=== PATIENT | male | born 1995 ===

== ENCOUNTER 2022-12-04 23:48 | Emergency (ER) | payer SELFPAY ==
[2022-12-05 00:31] LABS: Absolute Lymphocytes (CBC) 2.7 K/uL (0.7-4.9); Hematocrit 42.6 % (39.6-49.0); Lymphocytes % 30.3 % (15.3-44.8); MCV 82.3 fL (80-100); MPV 8.6 fL (7.6-11.3); Platelets 199 thou/uL (152-406); RBC Red Blood Cell Count 5.17 M/uL (4.33-5.43)
[2022-12-05 00:50] LABS: Bilirubin Total 0.3 mg/dL (0.2-1.0); Potassium 3.3 mEq/L (3.5-5.1); Protein, Total 7.8 g/dL (6.4-8.2)
[2022-12-05] MEDS ORDERED: MAGNES/ALUMIN/SIMET 30ML UCUP ONE (00:55)
[2022-12-05] MEDS ORDERED: FAMOTIDINE 20 MG/2 ML VIAL IV ONE (00:55)
--- NOTE | 2022-12-05 01:10 | EDPHYS ---
Physician Documentation [facility] Name: Romeo Bender Age: 27 yrs Sex: Male : 1995 Arrival Date: 12/04/2022 Time: 23:48 Bed 8 Private MD: ED Physician Aki Chapa HPI: 12/05 00:21 This 27 yrs old Male presents to ER via Unassigned with complaints of DRY MOUTH, abd rn pain. 00:21 The patient presents with abdominal pain in the left upper quadrant. Onset: The rn symptoms/episode began/occurred. 00:21 Onset: The symptoms/episode began/occurred 1.5 month(s) ago. The symptoms do not rn radiate. Associated signs and symptoms: Pertinent negatives: nausea and vomiting, anorexia, blood in stools, chest pain, fever, shortness of breath, vomiting, vomiting blood. The symptoms are described as burning. Modifying factors: The symptoms are alleviated by antacids, the symptoms are aggravated by nothing. Severity of pain: At its worst the pain was mild in the emergency department the pain is unchanged. The patient has not experienced similar symptoms in the past. Patient reports 1 to 1-1/2 months of dry mouth/bad taste in mouth/salty taste. Denies any medical problems. Reports tried Tums 1 time during the episode that alleviated the symptoms. Now having left upper quadrant pain for the last week. The combination made him come in for further evaluation.. Historical: - Allergies: 00:21 No Known Allergies; bp - Home Meds: 00:21 None [Active]; bp - PMHx: 00:21 None; bp - Immunization history:: Adult Immunizations up to date. - Social history:: Smoking status: Patient denies any tobacco usage or history of. - Family history:: not pertinent. - Hospitalizations: : No recent hospitalization is reported. ROS: 00:21 Constitutional: Negative for fever, chills, and weight loss, Neck: Negative for injury, rn pain, and swelling, Cardiovascular: Negative for chest pain, palpitations, and edema, Respiratory: Negative for shortness of breath, cough, wheezing, and pleuritic chest pain, Abdomen/GI: Positive for left upper quadrant abdominal pain MS/Extremity: Negative for injury and deformity, Neuro: Negative for headache, weakness, numbness, tingling, and seizure, Exam: 00:21 Constitutional: This is a well developed, well nourished patient who is awake, alert, rn and in no acute distress. Head/Face: Normocephalic, atraumatic. ENT: Oropharynx with no redness, swelling, or masses, exudates, or evidence of obstruction, uvula midline. Mucous membranes moist. Cardiovascular: Regular rate and rhythm. No pulse deficits. Respiratory: No increased work of breathing, no retractions or nasal flaring. Abdomen/GI: Soft, mild left upper quadrant tenderness. No epigastric tenderness. No peritoneal signs. No distention. Vital Signs: 00:20 BP 117 / 84; Pulse 70; Resp 16; Temp 97.7; Pulse Ox 99% ; bp 00:40 BP 129 / 84; Pulse 77; Resp 16 S; Pulse Ox 98% on R/A; Pain 4/10; km8 01:00 BP 126 / 90; Pulse 68; Resp 16; Pulse Ox 98% on R/A; km8 01:30 BP 124 / 88; Pulse 66; Resp 16; Pulse Ox 100% on R/A; km8 00:40 Pain Scale: Adult km8 MDM: 12/04 23:56 Patient medically screened. rn 12/05 01:09 Differential diagnosis: cholecystitis, Cholelithiasis, diverticulitis, gastritis, rn gastroesophageal reflux disease, non-specific abd pain. Differential diagnosis: pancreatitis, Peptic Ulcer Disease, Perf. Duodenal Ulcer, Perf. Gastric Ulcer. Data reviewed: vital signs, nurses notes. Data reviewed: lab test result(s), radiologic studies, CT scan, and as a result, I will discharge patient. Counseling: I had a detailed discussion with the patient and/or guardian regarding the historical points, exam findings, and any diagnostic results supporting the discharge/admit diagnosis, lab results, radiology results, the need for outpatient follow up, to return to the emergency department if symptoms worsen or persist or if there are any questions or concerns that arise at home. Response to treatment: the patient's symptoms have mildly improved after treatment, and as a result, I will discharge patient. Special discussion: I discussed with the patient/guardian in detail that at this point there is no indication for admission to the hospital. It is understood, however, that if the symptoms persist or worsen the patient needs to return immediately for re-evaluation. Based on the history and exam findings, there is no indication for further emergent testing or inpatient evaluation. I discussed with the patient/guardian the need to see the senior product development scientist for further evaluation of the symptoms. 02:02 ED course: Patient with marked improvement of symptoms after GI cocktail and Pepcid. rn 12/05 00:01 Order name: CBC with Diff; Complete Time: 00:54 rn 12/05 00:01 Order name: CMP; Complete Time: 00:54 rn 12/05 00:01 Order name: Lipase; Complete Time: 00:54 rn 12/05 00:01 Order name: CT Abd/Pelvis - IV Contrast Only rn 12/05 00:01 Order name: IV Saline Lock; Complete Time: 00:20 rn 12/05 00:01 Order name: Labs collected and sent; Complete Time: 00:20 rn Administered Medications: 00:50 Drug: Famotidine IVP 20 mg IVP once; dilute with 10 mL 0.9% NaCl; give over 2 minutes km8 Route: IVP; Site: right antecubital; 01:55 Follow up: Response: No adverse reaction; No change in condition km8 00:50 Drug: GI Cocktail without - (Maalox PO 30 ml, Lidocaine Mucous Membrane 2 % 15 km8 ml) PO once Route: PO; 01:55 Follow up: Response: No adverse reaction; No change in condition km8 Disposition Summary: 12/05/22 01:10 Discharge Ordered Notes: Location: Home rn Problem: an ongoing problem rn Symptoms: have improved rn Condition: Stable rn Diagnosis - Gastro-esophageal reflux disease without esophagitis rn - Abdominal pain, unspecified rn Followup: rn - With: Rafat Ahn MD - When: As needed - Reason: Recheck today's complaints, Re-evaluation by your physician Discharge Instructions: - Discharge Summary Sheet rn - Abdominal Pain, Adult rn - Gastroesophageal Reflux Disease, Adult rn Forms: - Medication Reconciliation Form rn - Thank You Letter rn - Antibiotic analysis internship - Prescription Opioid Use rn - Patient Portal Instructions rn - Leadership Thank You Letter rn Prescriptions: - Protonix 40 mg Oral Tablet - take 1 tablet ORAL route once daily; 30 tablet; Refills: 0, Product Selection rn Permitted Signatures: Dispatcher [employer] EDMS Chapa, Aki, MD MD rn Suzy, Manas, RN RN bp Robin, Serenity, RN RN km8
--- NOTE | 2022-12-05 01:10 | ER ---
Nurse's Notes [facility] Name: Romeo Bender Age: 27 yrs Sex: Male : 1995 Arrival Date: 12/04/2022 Time: 23:48 Bed 8 Private MD: Diagnosis: Gastro-esophageal reflux disease without esophagitis;Abdominal pain, unspecified Presentation: 12/05 00:20 Chief complaint: Patient states: 1.5 MONTH BAD TASTE/SMELL AND DRY MOUTH WITH LUQ PAIN. bp Coronavirus screen: At this time, the client does not indicate any symptoms associated with coronavirus-19. Ebola Screen: No symptoms or risks identified at this time. Initial Sepsis Screen: Does the patient meet any 2 criteria? No. Patient's initial sepsis screen is negative. Does the patient have a suspected source of infection? No. Patient's initial sepsis screen is negative. Risk Assessment: Do you want to hurt yourself or someone else? Patient reports no desire to harm self or others. Onset of symptoms is unknown. 00:20 Method Of Arrival: Ambulatory bp 00:20 Acuity: EDMUNDO 3 bp Triage Assessment: 00:21 General: Appears in no apparent distress. Behavior is calm, cooperative, appropriate bp for age. Pain: Complains of pain in abdomen. Historical: - Allergies: 00:21 No Known Allergies; bp - Home Meds: 00:21 None [Active]; bp - PMHx: 00:21 None; bp - Immunization history:: Adult Immunizations up to date. - Social history:: Smoking status: Patient denies any tobacco usage or history of. - Family history:: not pertinent. - Hospitalizations: : No recent hospitalization is reported. Screenin:38 [facility] ED Fall Risk Assessment (Adult) History of falling in the last 3 months, km8 including since admission No falls in past 3 months (0 pts) Confusion or Disorientation No (0 pts) Intoxicated or Sedated No (0 pts) Impaired Gait No (0 pts) Mobility Assist Device Used No (0 pt) Altered Elimination No (0 pt) Score/Fall Risk Level 0 - 2 = Low Risk Oriented to surroundings, Maintained a safe environment, Educated pt \T\ family on fall prevention, incl call for assistance when getting out of bed, Assessed \T\ reinforced patient's understanding of fall precautions. Abuse screen: Denies threats or abuse. Denies injuries from another. Nutritional screening: No deficits noted. Tuberculosis screening: No symptoms or risk factors identified. Assessment: 00:38 General: Appears in no apparent distress. comfortable, Behavior is calm, cooperative. km8 Pain: Complains of pain in left upper quadrant Pain currently is 4 out of 10 on a pain scale. Neuro: Willson Agitation-Sedation Scale (RASS): 0 - Alert and Calm Level of Consciousness is awake, alert, obeys commands, Oriented to person, place, time, situation. Cardiovascular: No deficits noted. Denies chest pain, Capillary refill < 3 seconds Patient's skin is warm and dry. Respiratory: No deficits noted. Airway is patent Respiratory effort is even, unlabored, Respiratory pattern is regular, symmetrical. GI: Abdomen is flat, non-distended, Reports upper abdominal pain, Pain is 4 out of 10 on a pain scale. : No deficits noted. No signs and/or symptoms were reported regarding the genitourinary system. EENT: No deficits noted. No signs and/or symptoms were reported regarding the EENT system. Derm: No deficits noted. No signs and/or symptoms reported regarding the dermatologic system. Skin is intact, is healthy with good turgor, Skin is dry, Skin is normal, Skin temperature is warm. Musculoskeletal: No deficits noted. No signs and/or symptoms reported regarding the musculoskeletal system. Circulation, motion, and sensation intact. Range of motion: intact in all extremities. 01:54 Reassessment: Patient appears in no apparent distress at this time. No changes from [facility] previously documented assessment. Patient and/or family updated on plan of care and expected duration. Pain level reassessed. Patient is alert, oriented x 3, equal unlabored respirations, skin warm/dry/pink. Vital Signs: 00:20 BP 117 / 84; Pulse 70; Resp 16; Temp 97.7; Pulse Ox 99% ; bp 00:40 BP 129 / 84; Pulse 77; Resp 16 S; Pulse Ox 98% on R/A; Pain 4/10; km8 01:00 BP 126 / 90; Pulse 68; Resp 16; Pulse Ox 98% on R/A; km8 01:30 BP 124 / 88; Pulse 66; Resp 16; Pulse Ox 100% on R/A; km8 00:40 Pain Scale: Adult km8 ED Course: 12/04 23:54 Patient arrived in ED. ag3 23:56 Aki Chapa MD is Attending Physician. rn 12/05 00:21 Triage completed. bp 00:21 Arm band placed on. bp 00:22 Inserted saline lock: 22 gauge in right forearm, using aseptic technique. Blood bp collected. 00:31 Serenity Kelly, RN is Primary Nurse. km8 00:38 Patient has correct armband on for positive identification. Bed in low position. Call km8 light in reach. Side rails up X 1. Client placed on continuous cardiac and pulse oximetry monitoring. NIBP monitoring applied. 00:38 Patient maintains SpO2 saturation greater than 95% on room air. km8 00:41 CT Abd/Pelvis - IV Contrast Only In Process Unspecified. EDMS 01:10 Rafat Ahn MD is Referral Physician. rn 01:54 Provided Education on: d/c teaching. km8 01:54 No provider procedures requiring assistance completed. km8 02:02 IV discontinued, intact, bleeding controlled, No redness/swelling at site. Pressure km8 dressing applied. Administered Medications: 00:50 Drug: Famotidine IVP 20 mg IVP once; dilute with 10 mL 0.9% NaCl; give over 2 minutes km8 Route: IVP; Site: right antecubital; 01:55 Follow up: Response: No adverse reaction; No change in condition km8 00:50 Drug: GI Cocktail without - (Maalox PO 30 ml, Lidocaine Mucous Membrane 2 % 15 km8 ml) PO once Route: PO; 01:55 Follow up: Response: No adverse reaction; No change in condition km8 Medication: 01:54 VIS not applicable for this client. km8 Outcome: 01:10 Discharge ordered by . rn 02:02 Discharged to home ambulatory, with friend, km8 02:02 Condition: good 02:02 Discharge instructions given to patient, friend, Instructed on discharge instructions, follow up and referral plans. medication usage, Demonstrated understanding of instructions, follow-up care, medications, Prescriptions given X 1, 02:03 Patient left the ED. km8 Signatures: Dispatcher [employer] EDMS Aki Chapa MD MD rn Peltier, Brian RN Bertha Paredes 3 Serenity Kelly, NAIN RN km8
[2022-12-05 02:30] VITALS: TEMP 97.7
[2022-12-05 02:42] VITALS: BP 124/88; O2SAT 100
--- NOTE | 2022-12-05 20:19 | RAD REPORT ---
EXAM DESCRIPTION: Abdomen Pelvis W Contrast CLINICAL HISTORY: 27 years Male ABD PAIN COMPARISON: None TECHNIQUE: Images were obtained in axial, sagittal, and coronal planes. Intravenous contrast was adm inistered. This exam was performed according to our departmental dose-optimization program which includes use of Automated Exposure Control, adjustment of the mA and/or kV according to patient size and/or use of iterative reconstruction technique. FINDINGS: Decreased attenuation involving the liver possibly fatty change. 1.3 cm nodular enhancing lesion anterior spleen. No abnormality involving the pancreas, gallbladder, or adrenal glands bilater ally. No obstructing renal or ureteral calculi bilaterally. No hydronephrosis bilaterally. Unremarkable shaila dder. Appendix within normal limits. No bowel obstruction, perforation, or inflammation. No abnormality of the abdominal aorta. Unremarkable portal vein. No adenopathy or abnormal fluid katelynn ections seen. No acute osseous abnormality. No abnormality lower lungs bilaterally. IMPRESSION: No acute intra-abdominal abnormality. Appendix within normal limits. No obstructing vivek l or ureteral calculi bilaterally. Suspected fatty change involving the liver. 1.3 cm enhancing nodule involving spleen possibly benign hemangioma. Consider 6 month follow-up imaging study to confirm stability. Electronically signed by: Arin English MD 12/05/2022 1:00 AM CDT Due to temporary technical issues with the PACS/Fluency reporting system, reports are being signed by the in house radiologists without review as a courtesy to insure prompt reporting. The interpreting radiologist is fully responsible for the content of the report.
== END 2022-12-05 02:03 | disposition home or self-care (01) ==
LOC: ER 23:48
DX: K21.9 Gastro-esophageal reflux disease without esophagitis (principal); R10.9 Unspecified abdominal pain
CPT/HCPCS: 36415; 74177; 80053; 83690; 85025; 96374; 99285; Q9967